=== PATIENT | male | born 1975 | race Caucasian/White ===

== ENCOUNTER 2020-05-18 16:08 | Emergency (ER) | payer OTHER, SELFPAY ==
[~2020-05-18] VITALS: Ht 162.6 cm; Wt 93.0 kg
[2020-05-18 16:40] VITALS: BP 130/69
--- NOTE | 2020-05-18 16:50 | NUR ---
C/O NIGHT SWEAT AND COUGH X 1 WEEK C/O FEVER A FEW DAYS AGO. TEMP IS 100.3 AT TRIAGE FRIEND TESTED ON 05/15 AND RECEIVED POS RESULT TODAY, PT SPENT 3 HRS WITH THIS FRIEND LAST WEEK DENIES SOB APPEARS NAD. NO RESP DISTRESS. HX- DENIES
--- NOTE | 2020-05-18 16:58 | NUR ---
ADALI YU EVALUATING PT AT THIS TIME
--- NOTE | 2020-05-18 17:26 | NUR ---
COVID SAMPLE OBTAINED
--- NOTE | 2020-05-18 17:30 | NUR ---
Patient discharged with v/s stable. Written and verbal after care instructions given and explained. Patient alert, oriented and verbalized understanding of instructions. Ambulatory with steady gait. All questions addressed prior to discharge. ID band removed. Patient advised to follow up with PMD. Rx of IBUPROFEN AND PROMETHAZINE given. Patient educated on indication of medication including possible reaction and side effects. Opportunity to ask questions provided and answered.
--- NOTE | 2020-05-18 17:39 | NUR ---
MARY SWAB HANDED TO PLANT TECH
[2020-05-18 17:43] VITALS: BP 124/63
--- NOTE | 2020-05-21 19:29 | NUR ---
Positive Covid results received from lab-copy sent to [facility] and [facility]
== END 2020-05-18 17:30 | disposition home or self-care (01) ==
LOC: MED 16:08 → EEVIPCON 16:08 → MED 17:30
DX: U07.1 COVID-19 (principal); R05 Cough; R50.9 Fever, unspecified; R09.81 Nasal congestion
CPT/HCPCS: 99283; U0003

== ENCOUNTER 2020-06-26 15:14 | Emergency (ER) | payer OTHER, SELFPAY ==
[~2020-06-26] VITALS: Ht 162.6 cm; Wt 93.0 kg
[2020-06-26 15:20] VITALS: BP 130/79
[2020-06-26] MEDS ORDERED: LIDOCAINE MPF 1% 5 ML ONE (16:04)
[2020-06-26] MEDS ORDERED: LIDOCAINE MPF 1% 10 MG/ML VIAL INJ ONE (16:05)
[2020-06-26] MEDS ORDERED: IBUPROFEN 600 MG TAB PO ONE (16:05)
[2020-06-26] MEDS ORDERED: BACITRACIN OINT 500 UNITS/GM PKT TP ONE ×2 (16:48→16:50)
[2020-06-26 17:00] VITALS: BP 138/65
== END 2020-06-26 16:58 | disposition home or self-care (01) ==
LOC: MED 15:14
DX: S81.012A Laceration without foreign body, left knee, initial encounter (principal); W27.0XXA Contact with workbench tool, initial encounter; Y93.89 Activity, other specified; Y92.89 Other specified places as the place of occurrence of the external cause; Y99.8 Other external cause status
CPT/HCPCS: 12002; 90471; 90715; 99283; J2001

== ENCOUNTER 2020-06-29 16:30 | Emergency (ER) | payer OTHER, SELFPAY ==
[~2020-06-29] VITALS: Ht 162.6 cm; Wt 95.3 kg
[2020-06-29 16:35] VITALS: BP 130/78
[2020-06-29 16:51] VITALS: BP 130/78
--- NOTE | 2020-06-29 16:53 | NUR ---
PT SEEN BY PA. ADVISED TO COME BACK THURSDAY FOR SUTURE REMOVAL
--- NOTE | 2020-06-29 16:53 | NUR ---
Patient discharged with v/s stable. Written and verbal after care instructions given and explained. Patient verbalized understanding. Ambulatory with steady gait. All questions addressed prior to discharge. Advised to follow up with PMD.
== END 2020-06-29 16:53 | disposition home or self-care (01) ==
LOC: MED 16:30
DX: S81.011D Laceration without foreign body, right knee, subsequent encounter (principal); X58.XXXD Exposure to other specified factors, subsequent encounter
CPT/HCPCS: 99282

== ENCOUNTER 2020-07-02 13:43 | Emergency (ER) | payer OTHER, SELFPAY ==
[~2020-07-02] VITALS: Ht 162.6 cm; Wt 94.3 kg
[2020-07-02 13:44] VITALS: BP 136/75
--- NOTE | 2020-07-02 13:53 | NUR ---
Patient ambulated to bed 5. RN evaluating patient at bedside.
--- NOTE | 2020-07-02 14:04 | NUR ---
45 YO MALE PRESENTS FOR SUTURE REMOVAL. NO BLEEDING OR DRAINAGE AT THE INCISION SITE
[2020-07-02 14:38] VITALS: BP 136/75
== END 2020-07-02 14:39 | disposition home or self-care (01) ==
LOC: MED 13:43
DX: S71.112D Laceration without foreign body, left thigh, subsequent encounter (principal); R03.0 Elevated blood-pressure reading, without diagnosis of hypertension; X58.XXXD Exposure to other specified factors, subsequent encounter
CPT/HCPCS: 99281

== ENCOUNTER 2020-07-10 19:19 | Emergency (ER) | payer OTHER, SELFPAY ==
[~2020-07-10] VITALS: Ht 162.6 cm; Wt 94.3 kg
[2020-07-10 19:22] VITALS: BP 137/70
--- NOTE | 2020-07-10 19:32 | NUR ---
NEYMAR BRO ASSESSING PT.
--- NOTE | 2020-07-10 19:57 | NUR ---
no nursing intervention ordered by ADALI Giordano.
--- NOTE | 2020-07-10 19:59 | NUR ---
Patient discharged with v/s stable. Written and verbal after care instructions given and explained. Patient alert, oriented and verbalized understanding of instructions. Ambulatory with steady gait. All questions addressed prior to discharge. ID band removed. Patient advised to follow up with PMD. Rx of keflex and bacitracin given. Patient educated on indication of medication including possible reaction and side effects. Opportunity to ask questions provided and answered.
== END 2020-07-10 19:59 | disposition home or self-care (01) ==
LOC: MED 19:19
DX: M79.605 Pain in left leg (principal); R03.0 Elevated blood-pressure reading, without diagnosis of hypertension; Z48.02 Encounter for removal of sutures
CPT/HCPCS: 99283